=== PATIENT | female | born 1995 | race African-American/Black ===

== ENCOUNTER 2019-12-26 12:06 | Emergency (ER) | payer MEDICAID ==
[~2019-12-26] VITALS: Ht 162.6 cm; Wt 56.7 kg
--- NOTE | 2019-12-26 12:33 | NUR ---
ED Nurse Note: pt presents to ED c/o mid-sternal chest "tightness" x 1 month, she states she initally felt the pain 2 months ago, thinks it is related to smoke in her house from her roommates. pt came in today because she has been using her inhaler for the last 2 days without relief of symptoms. pt denies wheezing at this time or tingling sensation in extremities but does report feeling px when taking deep breaths.
[2019-12-26 12:34] VITALS: BP 114/75
--- NOTE | 2019-12-26 12:35 | NUR ---
ED Nurse Note: pt reports that pain is tolerable at this time and does not wnat any medication for pain, is asking for pepcid
--- NOTE | 2019-12-26 12:42 | Emergency Room Report ---
History of Present Illness General Chief Complaint: Chest Pain Source: Patient Present Illness HPI Patient presents with intermittent chest pressure. She has a history of asthma. Has not been helped by her inhaler. The first time was 2 months ago when she was exposed to cigarette smoke in her apartment. She denies fevers or chills or productive cough. In the last couple of times to the inhaler is not helped. She has not heard herself wheezing. In response to the chest pressure she finds her self breathing deeply. She describes it like breathing through a small tube. There is no pleuritic chest pain. It is not positional. She denies calf pain or swelling. There is no hemoptysis. She denies pain per se but states that there is a feeling of pressure in her chest. She does occasionally take loratadine. She gets anxious when this happens. She denies any periorbital or extremity tingling. She denies palpitations at this times. She has not taken any medication aside from the albuterol. She denies feeling of acid in her stomach or chest. She denies change in her bowels. Her last period was normal and she denies the possibility of at this time. She does not take control pills. She occasionally ingests THC but has not done so for a while. She denies alcohol. Patient denies exposure to COVID-19 positive contacts. No chills, sore throat, nausea, vomiting, diarrhea, dysuria, abdominal pain, joint pain, rashes, depression, visual changes, dizziness, headache. 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 Last Menstrual Period: 12/24/19 Reviewed Nursing Documentation: PMH: Agreed; PSxH: Agreed Nursing Documentation-PMH Past Medical History: No Stated History Review of Systems All Other Systems: negative except mentioned in HPI Physical Exam Vital Signs Date Time Temp Pulse Resp B/P (MAP) Pulse Ox O2 Delivery O2 Flow Rate FiO2 12/26/19 12:13 98.1 76 16 114/75 (88) 100 Room Air Sp02 EP Interpretation: reviewed, normal General Appearance: well appearing, no apparent distress, GCS 15 Head: normocephalic Eyes: bilateral eye normal inspection ENT: normal pharynx, no angioedema, moist mucus membranes Neck: normal inspection, supple Respiratory: chest non-tender, lungs clear, normal breath sounds Cardiovascular #1: regular rate, rhythm, no edema Cardiovascular #2: 2+ radial (R) Gastrointestinal: normal inspection, normal bowel sounds, non tender, no mass, non-distended Musculoskeletal: back normal, normal range of motion, no calf tenderness, gait/station normal Neurologic: alert, oriented x3, grossly normal Psychiatric: mood/affect normal Skin: no rash, warm/dry Medical Decision Making Diagnostic Impression: Primary Impression: Chest pain Qualified Codes: R07.9 - Chest pain, unspecified Additional Impressions: Reflux esophagitis Hyperventilation ER Course Patient presents with chest pressure with history of asthma. This is been intermittent over the last 2 months and initially she felt it exposed to cigarette smoke. Differential includes asthma, pulmonary embolus, reflux esophagitis, costochondritis, other atypical chest pain amongst others. Based on the course COVID-19 unlikely. Cardiac risk factors are nil. However EKG indicated along with chest x-ray and labs. Patient will be treated with IV hydration and a dose of Pepcid. Patient placed on a president/[employer] & live experiences. Based on history, vital signs and physical exam pulmonary embolus extremely unlikely. Patient reluctant to take Pepcid. EKG normal. Chest x-ray normal. Labs unremarkable. Patient somewhat improved. She now reports that it is an acid-like feeling in her chest. Offered Mylanta but declined. Discuss findings and probable diagnosis with patient. Discussed the importance of outpatient follow-up. No apparent emergency at this time. Patient stable for outpatient observation and treatment. Laboratory Tests Test 12/26/19 12:42 12/26/19 13:22 White Blood Count 5.6 K/UL (4.8-10.8) Red Blood Count 4.03 M/UL (4.20-5.40) L Hemoglobin 13.2 G/DL (12.0-16.0) Hematocrit 37.7 % (37.0-47.0) Mean Corpuscular Volume 93 FL (80-99) Mean Corpuscular Hemoglobin 32.7 PG (27.0-31.0) H Mean Corpuscular Hemoglobin Concent 35.0 G/DL (32.0-36.0) Red Cell Distribution Width 11.0 % (11.6-14.8) L Platelet Count 162 K/UL (150-450) Mean Platelet Volume 13.7 FL (6.5-10.1) H Neutrophils (%) (Auto) 54.9 % (45.0-75.0) Lymphocytes (%) (Auto) 34.0 % (20.0-45.0) Monocytes (%) (Auto) 6.8 % (1.0-10.0) Eosinophils (%) (Auto) 2.1 % (0.0-3.0) Basophils (%) (Auto) 2.2 % (0.0-2.0) H Prothrombin Time 11.5 SEC (9.30-11.50) Prothrombin Time INR 1.0 (0.9-1.1) Activated Partial Thromboplast Time 26 SEC (23-33) Sodium Level 139 MMOL/L (136-145) Potassium Level 3.8 MMOL/L (3.5-5.1) Chloride Level 106 MMOL/L (98-107) Carbon Dioxide Level 24 MMOL/L (21-32) Anion Gap 10 mmol/L (5-15) Blood Urea Nitrogen 6 mg/dL (7-18) L Creatinine 0.8 MG/DL (0.55-1.30) Estimated Glomerular Filtration Rate > 60 mL/min (>60) Glucose Level 95 MG/DL (74-106) Calcium Level 9.0 MG/DL (8.5-10.1) Total Bilirubin 0.7 MG/DL (0.2-1.0) Aspartate Amino Transferase (AST) 18 U/L (15-37) Alanine Aminotransferase (ALT) 17 U/L (12-78) Alkaline Phosphatase 60 U/L (46-116) Total Creatine Kinase 121 U/L (26-308) Troponin I 0.000 ng/mL (0.000-0.056) Total Protein 6.7 G/DL (6.4-8.2) Albumin 4.1 G/DL (3.4-5.0) Globulin 2.6 g/dL Albumin/Globulin Ratio 1.6 (1.0-2.7) Urine Color Pale yellow Urine Appearance Clear Urine pH 5 (4.5-8.0) Urine Specific [place] 1.005 (1.005-1.035) Urine Protein Negative (NEGATIVE) Urine Glucose (UA) Negative (NEGATIVE) Urine Ketones Negative (NEGATIVE) Urine Blood 3+ (NEGATIVE) H Urine Nitrite Negative (NEGATIVE) Urine Bilirubin Negative (NEGATIVE) Urine Urobilinogen Normal MG/DL (0.0-1.0) Urine Leukocyte Esterase Negative (NEGATIVE) Urine RBC 0-2 /HPF (0 - 2) Urine WBC 0 /HPF (0 - 2) Urine Squamous Epithelial Cells Occasional /LPF Urine Bacteria Occasional /HPF (NONE) Urine HCG, Qualitative Negative (NEGATIVE) Urine Opiates Screen Negative (NEGATIVE) Urine Barbiturates Screen Negative (NEGATIVE) Phencyclidine (PCP) Screen Negative (NEGATIVE) Urine Amphetamines Screen Negative (NEGATIVE) Urine Benzodiazepines Screen Negative (NEGATIVE) Urine Cocaine Screen Negative (NEGATIVE) Urine Marijuana (THC) Screen Negative (NEGATIVE) EKG Diagnostic Results Rate: normal Rhythm: NSR ST Segments: no acute changes Rhythm Strip Diag. Results EP Interpretation: yes Rhythm: NSR, no PVC's, no ectopy Chest X-Ray Diagnostic Results Chest X-Ray Diagnostic Results : Chest X-Ray Ordered: Yes # of Views/Limited/Complete: 1 View Indication: Chest Pain EP Interpretation: Yes Interpretation: no consolidation, no effusion, no pneumothorax Impression: No acute disease Electronically Signed by: Electronically signed by Kalin Ponce MD Last Vital Signs Date Time Temp Pulse Resp B/P (MAP) Pulse Ox O2 Delivery O2 Flow Rate FiO2 12/26/19 14:50 98.4 74 19 115/79 99 Room Air Status: improved Disposition: HOME, SELF-CARE Condition: Improved Scripts Famotidine* (Pepcid 20mg tablet*) 20 Mg Tablet 20 MG ORAL DAILY, #20 TAB 0 Refills Prov: Kalin Ponce MD 12/26/19 Kalin Ponce MD Dec 26, 2019 12:42
--- NOTE | 2019-12-26 12:58 | NUR ---
ED Nurse Note: blood specimens collected and sent to lab, pt unable to provide urine sample at this time. ERMD notified
[2019-12-26 13:07] LABS: BASOPHILS % (AUTO) 2.2 % (0.0-2.0); EOSINOPHILS % (AUTO) 2.1 % (0.0-3.0); HEMATOCRIT 37.7 % (37.0-47.0); HEMOGLOBIN 13.2 G/DL (12.0-16.0); MEAN CORPUSCULAR VOLUME 93 FL (80-99); MONOCYTES % (AUTO) 6.8 % (1.0-10.0); NEUTROPHILS % (AUTO) 54.9 % (45.0-75.0); PLATELET COUNT 162 K/UL (150-450); RED BLOOD COUNT 4.03 M/UL (4.20-5.40); WHITE BLOOD COUNT 5.6 K/UL (4.8-10.8)
[2019-12-26 13:21] LABS: ANION GAP 10 mmol/L (5-15); BLOOD UREA NITROGEN 6 mg/dL (7-18); CARBON DIOXIDE 24 MMOL/L (21-32); CHLORIDE 106 MMOL/L (98-107); CREATININE 0.8 MG/DL (0.55-1.30); POTASSIUM 3.8 MMOL/L (3.5-5.1); SODIUM 139 MMOL/L (136-145)
[2019-12-26 13:27] LABS: ALANINE AMINOTRANSFERASE 17 U/L (12-78); ALBUMIN 4.1 G/DL (3.4-5.0); ALBUMIN/GLOBULIN RATIO 1.6 (1.0-2.7); ALKALINE PHOSPHATASE 60 U/L (46-116); ASPARTATE AMINO TRANSFERASE 18 U/L (15-37); BILIRUBIN,TOTAL 0.7 MG/DL (0.2-1.0); CREATINE KINASE 121 U/L (26-308)
[2019-12-26 13:47] LABS: APPEARANCE,URINE CLEAR; BILIRUBIN, URINE NEGATIVE (NEGATIVE); COLOR,URINE PALE YELLOW; GLUCOSE, URINE (UA) NEGATIVE (NEGATIVE); KETONES,URINE NEGATIVE (NEGATIVE); LEUKOCYTE ESTERASE ,URINE NEGATIVE (NEGATIVE); NITRITE,URINE NEGATIVE (NEGATIVE); PH,URINE 5 (4.5-8.0); PROTEIN,URINE NEGATIVE (NEGATIVE); UROBILINOGEN,URINE NORMAL MG/DL (0.0-1.0)
[2019-12-26] MEDS ORDERED: FAMOTIDINE20 MG ORAL (14:37)
[2019-12-26 14:50] VITALS: BP 115/79
--- NOTE | 2019-12-26 14:50 | NUR ---
ER DISCHARGE NOTE: Patient is cleared to be discharged per ERMD, pt is aox4, on room air, with stable vital signs. pt was given dc and prescription instructions, pt was able to verbalize understanding, pt id band and iv site removed without complications. pt is able to ambulate with steady gait. pt took all belongings.
--- NOTE | 2019-12-26 15:21 | Diagnostic Imaging Report ---
Indication: Reason For Exam: CP Technique: Single AP view of the chest. Comparison: None. Findings: The cardiomediastinal silhouette is within normal limits. There is no focal consolidation, pneumothorax or pleural effusion. Osseous structures demonstrate no acute abnormality. IMPRESSION: No radiographic evidence of acute cardiopulmonary process.
--- NOTE | 2020-01-03 16:11 | Cardiology Report ---
APPROVED REPORT EKG Measurement Heart [id number] <Conclusion> Normal sinus rhythm Normal ECG
== END 2019-12-26 14:51 | disposition home or self-care (01) ==
LOC: EMR 13:54
DX: R07.9 Chest pain, unspecified (principal); K21.0 Gastro-esophageal reflux disease with esophagitis; R06.4 Hyperventilation
CPT/HCPCS: 36415; 71045; 80053; 80307; 81003; 81025; 82550; 84484; 85025; 85610; 85730; 93005; 96374; S0028; Z7502; 99284